=== PATIENT | male | born 1930 | race Caucasian/White ===

== ENCOUNTER 2016-07-28 18:46 | Inpatient (IN) | payer OTHER ==
[~2016-07-28] VITALS: Ht 167.6 cm; Wt 63.9 kg
[~2016-07-28 18:46] MED LIST: ACETAMINOPHEN500 MG PO; ASPIRIN BUFFER325 MG PO; DONEPEZIL HCL10 MG PO; FUROSEMIDE20 MG PO; ISORDIL,SORBITR40 M3 PO; ISOSORBIDE DINI20 MG PO; KLOR-CON 1010 ME1 PO; METOPROLOL SUCC50 MG PO; NEXIUM40 MG PO; PROSCAR5 MG PO; VYTORIN 10/41 TABLET PO
[2016-07-28 20:20] LABS: EOSINOPHIL (%) 1.1 % (0-5); EOSINOPHIL COUNT 0.1 K/uL (0-0.3); HEMATOCRIT 33.2 % (38.0-50.0); IMMATURE GRANULOCYTE (%) 0.2 % (0.0-0.7); IMMATURE GRANULOCYTE COUNT 0.1 K/uL; LYMPHOCYTE COUNT 0.6 K/uL (1.0-2.8); MCH 34.1 PG (29.0-34.0); MCHC 34.3 G/DL (30.0-36.0); MCV 99.4 FL (86-99); MEAN PLAT.VOLUME 10.3 uM^3 (9.0-12.4); MONOCYTE (%) 8.8 % (3-12); MONOCYTE COUNT 0.6 K/uL (0-0.8); NEUTROPHIL (%) 79.8 % (45-76); PLATELET COUNT 135 K/uL (156-360); RBC DIS.WIDTH-CV 14.4 % (11.8-14.6); RBC DIS.WIDTH-SD 49.9 % (39-53); RED BLOOD COUNT 3.34 M/uL (4.00-5.50); WHITE BLOOD COUNT 6.2 K/uL (4.1-10.2)
[2016-07-28 20:30] LABS: CHLORIDE 109 mEq/L (99-109); POTASSIUM 3.8 mEq/L (3.7-5.4)
[2016-07-28 20:31] LABS: SODIUM 141 mEq/L (136-147)
[2016-07-28 20:33] LABS: GLUCOSE 104 mg/dL (70-99)
[2016-07-28 20:34] LABS: ANION GAP 10 MEQ/L (2-14)
[2016-07-28 20:36] LABS: ALKALINE PHOSPHATASE 74 IU/L (3-129); GFR ESTIMATE (CALCULATED) 47 mL/min/
[2016-07-28 20:38] LABS: UREA NITROGEN (BUN) 54 mg/dL (9-23)
[2016-07-28 20:40] LABS: TROP-I INTERPRETATION NEGATIVE; TROPONIN-I 0.07 ng/mL (0.0-0.30)
[2016-07-28 20:44] LABS: ADD MIUA? YES; BILIRUBIN SMALL; BLOOD SMALL; COLOR DK YELLOW ((YELLOW)); GLUCOSE (STRIP) NEGATIVE; KETONES TRACE; LEUKOCYTES NEGATIVE; NITRITE NEGATIVE; PROTEIN (STRIP) 30; SPECIFIC GRAVITY 1.031 (1.000-1.030)
[2016-07-28 21:12] LABS: BACTERIA 1+; CASTS PRESENT /LPF; CRYSTALS NONE SEEN; EPITHELIAL CELLS RARE; HYALINE CASTS 0-5 /LPF; MUCUS 1+; RED BLOOD CELLS 0-5 /HPF (0-5); UCUL ADDED? NO; WHITE BLOOD CELLS 0-5 /HPF (0-5)
[2016-07-28] MEDS ORDERED: LITE COAT ASPI325 M1 PO (21:21)
[2016-07-28] MEDS ORDERED: PROTONIX40 MG PO (21:21)
[2016-07-28] MEDS ORDERED: LEVAQUIN500 MG PO (21:21)
[2016-07-28] MEDS ORDERED: SIMVASTATIN40 MG PO (21:22)
[2016-07-28] MEDS ORDERED: ISOSORBIDE DINI40 MG PO (21:22)
[2016-07-29 00:18] VITALS: BP 164/90
[2016-07-29 06:41] LABS: EOSINOPHIL (%) 0.5 % (0-5); HEMATOCRIT 30.4 % (38.0-50.0); IMMATURE GRANULOCYTE (%) 0.2 % (0.0-0.7); LYMPHOCYTE COUNT 0.5 K/uL (1.0-2.8); MCH 33.8 PG (29.0-34.0); MCHC 33.9 G/DL (30.0-36.0); MCV 99.7 FL (86-99); MONOCYTE (%) 9.6 % (3-12); MONOCYTE COUNT 0.6 K/uL (0-0.8); NEUTROPHIL (%) 80.6 % (45-76); NEUTROPHIL COUNT 4.6 K/uL (1.8-6.4); PLATELET COUNT 117 K/uL (156-360); RBC DIS.WIDTH-CV 14.6 % (11.8-14.6); RBC DIS.WIDTH-SD 53.1 % (39-53); RED BLOOD COUNT 3.05 M/uL (4.00-5.50); WHITE BLOOD COUNT 5.7 K/uL (4.1-10.2)
[2016-07-29 06:57] LABS: ANION GAP 9 MEQ/L (2-14); CHLORIDE 113 MEQ/L (99-109); GFR ESTIMATE (CALCULATED) 56 mL/min/; GLUCOSE 85 mg/dL (70-99); POTASSIUM 3.6 MEQ/L (3.7-5.4); SAMPLE HEMOLYSIS CHECK 0; SAMPLE ICTERIC CHECK 0; SAMPLE LIPEMIA CHECK 0; SODIUM 143 MEQ/L (136-147); UREA NITROGEN (BUN) 44 mg/dL (9-23)
[2016-07-29 07:30] VITALS: BP 128/61
[2016-07-29 11:05] VITALS: BP 103/59
[2016-07-29 15:53] VITALS: BP 120/67
[2016-07-29 23:59] VITALS: BP 175/72
[2016-07-30 06:51] LABS: MCH 32.9 PG (29.0-34.0); MCHC 33.1 G/DL (30.0-36.0); MCV 99.3 FL (86-99); MEAN PLAT.VOLUME 10.7 uM^3 (9.0-12.4); PLATELET COUNT 136 K/uL (156-360); RBC DIS.WIDTH-CV 14.5 % (11.8-14.6); RBC DIS.WIDTH-SD 52.7 % (39-53); RED BLOOD COUNT 2.92 M/uL (4.00-5.50); WHITE BLOOD COUNT 5.2 K/uL (4.1-10.2)
[2016-07-30 07:02] LABS: ANION GAP 9 MEQ/L (2-14); CHLORIDE 114 MEQ/L (99-109); GFR ESTIMATE (CALCULATED) 56 mL/min/; GLUCOSE 93 mg/dL (70-99); POTASSIUM 3.9 MEQ/L (3.7-5.4); SAMPLE HEMOLYSIS CHECK 0; SAMPLE ICTERIC CHECK 0; SAMPLE LIPEMIA CHECK 0; SODIUM 146 MEQ/L (136-147); UREA NITROGEN (BUN) 36 mg/dL (9-23)
[2016-07-30 07:50] VITALS: BP 174/77
[2016-07-30 11:32] VITALS: BP 141/71
[2016-07-30 17:03] VITALS: BP 175/88
[2016-07-30 20:00] VITALS: BP 172/88
[2016-07-30 23:19] VITALS: BP 160/76
[2016-07-31 04:26] VITALS: BP 174/89
[2016-07-31 08:03] VITALS: BP 147/73
[2016-07-31 15:00] VITALS: BP 152/86
[2016-07-31 16:12] VITALS: BP 148/63
[2016-08-01 00:49] VITALS: BP 123/71
[2016-08-01 03:40] VITALS: BP 129/63
[2016-08-01 07:58] VITALS: BP 141/75
[2016-08-01 09:31] LABS: ABSOLUTE RETICULOCYTE CT. 0.04 M/uL (0.02-0.08); HEMATOCRIT 32.6 % (38.0-50.0); IMM.RETIC FRACTION 8.8 % (3-19); MCH 33.2 PG (29.0-34.0); MCHC 33.7 G/DL (30.0-36.0); MCV 98.5 FL (86-99); MEAN PLAT.VOLUME 10.5 uM^3 (9.0-12.4); PLATELET COUNT 161 K/uL (156-360); RBC DIS.WIDTH-CV 14.3 % (11.8-14.6); RBC DIS.WIDTH-SD 51.8 % (39-53); RED BLOOD COUNT 3.31 M/uL (4.00-5.50); RETICULOCYTE COUNT 1.3 % (0.5-1.8); WHITE BLOOD COUNT 5.9 K/uL (4.1-10.2)
[2016-08-01 09:56] LABS: IRON 12 MCG/DL (35-150)
[2016-08-01 10:14] LABS: FERRITIN 472 NG/ML (22-322)
[2016-08-01 11:32] VITALS: BP 108/65
[2016-08-01] MEDS ORDERED: LISINOPRIL10 MG PO (14:16)
[2016-08-01] MEDS ORDERED: SEROQUEL12.5 MG PO (14:17)
[2016-08-01] MEDS ORDERED: CEFTIN500 MG PO (14:18)
== END 2016-08-01 15:42 | DRG 193 ==
LOC: EME 18:46 → 2EAST 22:06 → EDOF 22:06 → 2EAST 23:33
PROVIDERS: Emergency Medicine; Internal Medicine; Physician Assistant Medical
DX: J18.9 Pneumonia, unspecified organism (principal); G93.41 Metabolic encephalopathy; N18.3 Chronic kidney disease, stage 3 (moderate); N30.90 Cystitis, unspecified without hematuria; E86.0 Dehydration; R50.9 Fever, unspecified; Z88.0 Allergy status to penicillin; E78.5 Hyperlipidemia, unspecified; K21.9 Gastro-esophageal reflux disease without esophagitis; G89.29 Other chronic pain; I25.2 Old myocardial infarction; I12.9 Hypertensive chronic kidney disease with stage 1 through stage 4 chronic kidney disease, or unspecified chronic kidney disease; I25.10 Atherosclerotic heart disease of native coronary artery without angina pectoris; F03.90 Unspecified dementia, unspecified severity, without behavioral disturbance, psychotic disturbance, mood disturbance, and anxiety; D64.9 Anemia, unspecified; Z95.5 Presence of coronary angioplasty implant and graft; N40.1 Benign prostatic hyperplasia with lower urinary tract symptoms; H91.90 Unspecified hearing loss, unspecified ear; R62.7 Adult failure to thrive
CPT/HCPCS: 70450; 71010; 80048; 80053; 81003; 82607; 82728; 82746; 83540; 83605; 84443; 84484; 85025; 85027; 85045; 87040; 87070; 87205; 94640; 94640 76; 94760; 94799; 99202; 99281; 99285; J0696; J1644; J7030; J7050; S0073